=== PATIENT | male | born 1970 | race Caucasian/White ===

== ENCOUNTER 2020-08-27 07:22 | Emergency (ER) | payer SELFPAY ==
[2020-08-27] VITALS (12 sets, daily range): BP systolic 94–118; BP diastolic 46–69; PULSE 90–101; RESP 17–38; TEMP 36.3; O2SAT 86–97; BMI 32.5
--- NOTE | 2020-08-27 07:23 | CTR_ITS ---
PROCEDURE INFORMATION: Exam: CT Cervical Spine Without Contrast Exam date and time: 08/27/2020 7:40 AM Age: 50 years old Clinical indication: Injury or trauma; Fall; Blunt trauma; Injury date: 08/27/2020; Injury details: PT fell out of tree stand, limited HX due to PT condition. Best images due to PT condition TECHNIQUE: Imaging protocol: Computed tomography images of the cervical spine without contrast. Radiation optimization: All CT scans at this facility use at least one of these dose optimization techniques: automated exposure control; mA and/or kV adjustment per patient size (includes targeted exams where dose is matched to clinical indication); or iterative reconstruction. COMPARISON: No relevant prior studies available. RADIATION DOSE METRICS: Total DLP (mGy-cm): 474.14 FINDINGS: Bones/joints: Acute fractures of the visualized left 2nd and 3rd ribs. No acute bony injury or malalignment in the visualized cervical spine. Diminished cervical lordosis. Discs/Spinal canal/Neural foramina: Multilevel degenerative change. Soft tissues: Ligamentous calcification. Prominent subcutaneous emphysema. Lungs: High attenuation fluid and small pneumothorax in the incompletely visualized left apex, which will be evaluated in its entirety on separate chest CT report. CT/CT cervical spin wo con* [id number] IMPRESSION: 1. No acute bony injury or malalignment in the visualized cervical spine. 2. Acute fractures of the visualized left 2nd and 3rd ribs. 3. High attenuation fluid and small pneumothorax in the incompletely visualized left apex, which will be evaluated in its entirety on separate chest CT report. Radiation Dose CTDIVOL = (mGy): DLP = 474.14 (mGy-cm)
--- NOTE | 2020-08-27 07:23 | XRR_ITS ---
PROCEDURE INFORMATION: Exam: XR Chest, 1 View Exam date and time: 08/27/2020 7:24 AM Age: 50 years old Clinical indication: Injury or trauma; Fall; Blunt trauma (contusions or hematomas); Injury date: 08/27/2020; Injury details: PT fell out of tree stand, limited HX due to PT condition; Additional info: Cp TECHNIQUE: Imaging protocol: XR of the chest Views: 1 view. COMPARISON: No relevant prior studies available. FINDINGS: Lungs: There is patchy left lung consolidation. With history of trauma this may represent pulmonary contusion. In the right lung there appears to be a granuloma in the right upper lobe. Pleural space: No pleural effusion or pneumothorax is seen. Heart/Mediastinum: The heart is not enlarged. Bones/joints: There are mildly displaced fractures of multiple left ribs at least the 6 7th and 8th ribs.. Soft tissues: There is subcutaneous emphysema around the left upper chest. XR/XR chest 1V portable [id number] IMPRESSION: 1. Subcutaneous emphysema over the left upper chest. 2. Patchy left lung consolidation probably due to pulmonary contusions. 3. Multiple left rib fractures.
--- NOTE | 2020-08-27 07:23 | CTR_ITS ---
PROCEDURE INFORMATION: Exam: CT Head Without Contrast Exam date and time: 08/27/2020 7:40 AM Age: 50 years old Clinical indication: Injury or trauma; Fall; Blunt trauma (contusions or hematomas); Consciousness not specified; Injury date: 08/27/2020; Injury details: PT fell out of tree stand, limited HX due to PT condition. Best images due to PT condition TECHNIQUE: Imaging protocol: Computed tomography of the head without contrast. Radiation optimization: All CT scans at this facility use at least one of these dose optimization techniques: automated exposure control; mA and/or kV adjustment per patient size (includes targeted exams where dose is matched to clinical indication); or iterative reconstruction. COMPARISON: No relevant prior studies available. RADIATION DOSE METRICS: Total DLP (mGy-cm): 850.15 FINDINGS: Brain: Mild symmetric prominence of the cortical sulci relative to the stated patient age. No acute post-traumatic brain injury. Cerebral ventricles: Normal configuration of the ventricles. Bones/joints: No acute calvarial injury. Paranasal sinuses: Maxillary sinus mucoperiosteal disease. Mastoid air cells: No mastoid effusion. Soft tissues: No significant scalp hematoma. CT/CT head wo con* [id number] IMPRESSION: No acute post-traumatic brain injury. Radiation Dose CTDIVOL = (mGy): DLP = 850.15 (mGy-cm)
--- NOTE | 2020-08-27 07:23 | CTR_ITS ---
PROCEDURE INFORMATION: Exam: CT Chest With Contrast Exam date and time: 08/27/2020 7:39 AM Age: 50 years old Clinical indication: Injury or trauma; Fall; Generalized; Blunt trauma (contusions or hematomas); Injury date: 08/27/2020; Injury details: PT fell out of tree stand, limited HX due to PT condition. Best images due to PT condition TECHNIQUE: Imaging protocol: Computed tomography of the chest with intravenous contrast. Radiation optimization: All CT scans at this facility use at least one of these dose optimization techniques: automated exposure control; mA and/or kV adjustment per patient size (includes targeted exams where dose is matched to clinical indication); or iterative reconstruction. Contrast material: OMNIPAQUE 300; Contrast volume: 95 ml; Contrast route: INTRAVENOUS (IV); COMPARISON: No relevant prior studies available. RADIATION DOSE METRICS: Total DLP (mGy-cm): 3014.13 FINDINGS: Lungs: . There is moderate-sized left pleural effusion. A small left pneumothorax is present. There is patchy consolidation and atelectasis in the left lung consistent with pulmonary contusions. There is a benign calcified granuloma in the right lung Pleural space: . Moderate left pleural effusion with small left pneumothorax. Heart: Unremarkable. No cardiomegaly. No pericardial effusion. Aorta: Unremarkable. No aortic aneurysm. Lymph nodes: Unremarkable. No enlarged lymph nodes. Bones/joints: There are multiple left transverse process spine fractures at T5, T6, T7, T8, T9 and T10. There is about 5 mm of displacement. There are multiple left rib fractures involving the 2nd through the 12th ribs. There is about 1 cm of maximal displacement. Soft tissues: There is subcutaneous emphysema over the left side of the chest and into the left side of the neck. IMPRESSION: 1. Multiple displaced left rib and left transverse process fractures. 2. Moderate left pleural effusion. Small left pneumothorax. PROCEDURE INFORMATION: Exam: CT Abdomen And Pelvis With Contrast Exam date and time: 08/27/2020 7:39 AM Age: 50 years old Clinical indication: Injury or trauma; Fall; Generalized; Blunt trauma (contusions or hematomas); Injury date: 08/27/2020; Injury details: PT fell out of tree stand, limited HX due to PT condition. Best images due to PT condition TECHNIQUE: Imaging protocol: Computed tomography of the abdomen and pelvis with intravenous contrast. Radiation optimization: All CT scans at this facility use at least one of these dose optimization techniques: automated exposure control; mA and/or kV adjustment per patient size (includes targeted exams where dose is matched to clinical indication); or iterative reconstruction. Contrast material: OMNIPAQUE 300; Contrast volume: 95 ml; Contrast route: INTRAVENOUS (IV); COMPARISON: No relevant prior studies available. RADIATION DOSE METRICS: Total DLP (mGy-cm): 3014.13 FINDINGS: Liver: Normal. No mass. Gallbladder and bile ducts: Normal. No calcified stones. No ductal dilation. Pancreas: Normal. No ductal dilation. Spleen: There are multiple areas of diminished enhancement in the spleen measuring up to about 5 cm in diameter. There is a tiny amount of adjacent fluid. These findings are consistent with a grade 2 splenic injury. There is no evidence of vascular injury or extravasation. Adrenal glands: Normal. No mass. Kidneys and ureters: There are multiple areas of diminished enhancement in the left kidney there is hazy infiltration of the left renal hilum. Small cortical laceration is seen posteriorly. No contrast extravasation is seen. These findings are consistent with a parenchymal contusion and small laceration and consistent with a grade 2 left renal injury. Stomach and bowel: Unremarkable. No obstruction. No mucosal thickening. Appendix: No evidence of appendicitis. Intraperitoneal space: Of there is a small amount of free fluid in the pelvis. Vasculature: See Spleen finding. Lymph nodes: Unremarkable. No enlarged lymph nodes. Urinary bladder: Unremarkable as visualized. Reproductive: Unremarkable as visualized. Bones/joints: There are fractures of the left L2, L3 and L4 transverse processes with about 5 mm of displacement. There is a compression fracture of the superior endplate of L4 with mild loss of vertebral height. Soft tissues: There is subcutaneous contusion over the left flank. CT/CT chest abd pel w con* IMPRESSION: 1. Grade 2 spleen and grade 2 left renal injuries. 2. Fractures of the left L2, L3 and L4 transverse processes. 3. Compression fracture of L4 with mild loss of vertebral height. 4. Small amount of free fluid in the pelvis. THIS REPORT CONTAINS FINDINGS THAT MAY BE CRITICAL TO PATIENT CARE. The findings were verbally communicated via telephone conference with silviano Flower at 8:16 AM [employer] on 08/27/2020. The findings were acknowledged and understood. Radiation Dose CTDIVOL = (mGy): DLP = 3014.13~3014.13 (mGy-cm)
[2020-08-27] MEDS: ondansetron 2 mg/ML SDV 2 mL 4 MG IVP (07:28)
[2020-08-27] MEDS: HYDROmorphone 1 mg/mL INJ 1 mL IVP ×2 (07:28→08:18)
--- NOTE | 2020-08-27 07:32 | W.ED.FALL ---
HPI - Fall General: Chief Complaint: Fall Stated Complaint: FALL FROM TREE STAND Time Seen by Provider: 08/27/20 07:24 Source: patient Mode of arrival: ambulatory Limitations: no limitations History of Present Illness: HPI Narrative: 50-year-old male who was hunting this morning and fell out of his tree stand. He states his roughly 12 to 14 foot fall. He states he had left shoulder pain along with left rib pain. States he had neck pain as well. He states pain is sharp in nature and rates it a 8 out of 10. Denies any vomiting or diarrhea. Denies any worsening or improving factors. MD complaint: fall Associated symptoms-after fall: Reports abdominal pain and chest pain; Denies headache(s) or neck pain Review of Systems Const: Denies: fever(s), chills, body aches or change in appetite Eyes: Denies: blurry vision or eye discomfort ENMT: Denies: throat pain or dental pain Card: Reports: chest pain Resp: Reports: dyspnea GI: Reports: abdominal pain; Denies: nausea, vomiting or diarrhea : Denies: dysuria Musc: Denies: neck pain or back pain Skin/Breast: Denies: rash Neuro: Denies: headache(s) Psych: Denies: depression Chalino/Lymph: Denies: easy bruising All/Imm: Denies: urticaria Physical Exam Const: COMMON NORMALS: patient oriented x3 GENERAL APPEARANCE: in distress HENMT: COMMON NORMALS: normocephalic and atraumatic HEAD & SCALP: normocephalic and atraumatic Eye: COMMON NORMALS: Equal, round and reactive pupils present and EOMs intact bilaterally PUPIL: Yes Equal, round and reactive pupils present Neck/C-Spine: OTHER: Patient does have neck pain. Patient placed in a c-collar immediately. Chest: COMMONS NORMALS: normal inspection of the chest OTHER: Tenderness over left chest with some crepitus Resp: COMMON NORMALS: normal respiratory effort, No retractions, No use of accessory muscles and clear to auscultation bilaterally AUSCULTATION: clear to auscultation bilaterally Cardio: COMMON NORMALS: regular rate, regular rhythm and No murmurs present (Cardio) RATE: regular rate RHYTHM: regular rhythm GI: COMMON NORMALS: Normal to inspection, nondistended, normoactive bowel sounds present, Soft to palpation, non-tender and no masses PALPATION: Yes Soft to palpation Extremity: COMMON NORMALS: normal to inspection and full ROM Neuro: COMMON NORMALS: patient oriented x3, moves all extremities and no focal motor deficits Psych: COMMON NORMALS: mental status grossly normal, Normal thought process present and cooperative THOUGHT PROCESS: Normal thought process present Skin: COMMON NORMALS: no rashes or lesions noted and no wounds GENERAL SKIN EXAM: no rashes or lesions noted Procedures Chest Tube Chest Tube 1: Chest Tube Location: left Size of Tube (cm): 36 Chest Tube Prep: Yes betadine prep and sterile drapes applied Local Anesthetic: lidocaine 2% Incision Made With: #10 blade Post Procedure: sutured to skin and sterile dressing applied Tube Drainage: blood Post Procedure CXR?: Yes Patient Tolerated Procedure: Yes Procedural Sedation Indication: other (Chest tube placement) ASA Class: I Time of Last PO Intake: 05:39 IV Propofol dose (mg): 140 Patient Tolerated Procedure: well Course Vital Signs: Vital signs: Vital Signs Temperature 97.4 F L 08/27/20 08:00 Pulse Rate 90 08/27/20 08:22 Respiratory Rate 32 H 08/27/20 08:22 Blood Pressure 101/56 08/27/20 08:22 Pulse Oximetry 94 08/27/20 08:22 MDM - Fall MDM Narrative: Medical decision making narrative: Patient presents here with a fall from a tree stand. He has a multiple rib fractures and hemopneumothorax from the fall. Patient had chest tube placed here. Patient has been hemodynamically stable here. He has no signs of hemorrhagic shock. Spoke to ER physician at [facility] and will transfer there for trauma. Lab Data: Labs: Lab Results 08/27/20 08/27/20 08/27/20 Range/Units 07:25 07:25 07:25 WBC 20.7 H (4.0-10.0) 10^3/ uL RBC 4.45 (4.1-5.3) 10^6/u L Hgb 13.3 (11.7-16.6) g/dL Hct 41.5 L (42.0-52.0) % MCV 93.3 (80-94) fL MCH 29.9 (28.0-34.0) pg MCHC 32.0 (30.0-36.0) g/dL RDW 15.2 H (12.1-15.1) % Plt Count 362 (130-400) 10^3/c mm MPV 9.3 (7.4-10.4) fL Lymph % (Auto) Not Reportable Martin % (Auto) Not Reportable Lymph # (Auto) Not Reportable Martin # (Auto) Not Reportable PT 13.40 (12.1-14.9) SECO NDS INR 0.99 (0.8-1.2) Sodium 142 (136-145) mmol/L Potassium 3.1 L (3.5-5.1) mmol/L Chloride 106 (98-107) mmol/L Carbon Dioxide 22 (22-29) mmol/L Anion Gap 17.1 (5-19) BUN 16 (6-20) mg/dL Creatinine 1.0 (0.7-1.2) mg/dL GFR Calculation 79.4 L (90-130) mL/min Glucose 219 H (65-115) mg/dL Calculated Osmolal ity 302 H (285-295) mOsm/k g Calcium 8.8 (8.5-10.5) mg/dL Total Bilirubin 0.5 (0.15-1.2) mg/dL AST 119 H (0-40) U/L ALT 102 H (0-41) U/L Alkaline Phosphata se 172 H (40-130) IU/L Total Protein 6.7 (6.6-8.7) g/dL Albumin 4.1 (3.5-5.2) g/dL Globulin 2.6 (1.3-4.6) g/dL Imaging Data^: CT Head: Radiologist's impression: [place] [address] CT Scan Report Signed Patient: Kerwin Preciado Unit #: [id number] : 1970 Age/Sex: 50 / M ADM Date: 08/27/20 Loc: ER Room/Bed: Attending Dr: Ordering Provider/Ordering MD: Rickie Flower MD Date of Service: 08/27/20 Procedure(s): CT head wo con* [id number] Accession Number(s): [id number] Report Number: [id number] PROCEDURE INFORMATION: Exam: CT Head Without Contrast Exam date and time: 08/27/2020 7:40 AM Age: 50 years old Clinical indication: Injury or trauma; Fall; Blunt trauma (contusions or hematomas); Consciousness not specified; Injury date: 08/27/2020; Injury details: PT fell out of tree stand, limited HX due to PT condition. Best images due to PT condition TECHNIQUE: Imaging protocol: Computed tomography of the head without contrast. Radiation optimization: All CT scans at this facility use at least one of these dose optimization techniques: automated exposure control; mA and/or kV adjustment per patient size (includes targeted exams where dose is matched to clinical indication); or iterative reconstruction. COMPARISON: No relevant prior studies available. RADIATION DOSE METRICS: Total DLP (mGy-cm): 850.15 FINDINGS: Brain: Mild symmetric prominence of the cortical sulci relative to the stated patient age. No acute post-traumatic brain injury. Cerebral ventricles: Normal configuration of the ventricles. Bones/joints: No acute calvarial injury. Paranasal sinuses: Maxillary sinus mucoperiosteal disease. Mastoid air cells: No mastoid effusion. Soft tissues: No significant scalp hematoma. CT/CT head wo con* [id number] IMPRESSION: No acute post-traumatic brain injury. Other CT: Attestation: I personally reviewed and interpreted this imaging study as follows: Radiologist's impression: [place] [address] CT Scan Report Signed Patient: Kerwin Preciado Unit #: [id number] : 1970 Age/Sex: 50 / M ADM Date: 08/27/20 Loc: ER Room/Bed: Attending Dr: Ordering Provider/Ordering MD: Rickie Flower MD Date of Service: 08/27/20 Procedure(s): CT cervical spin wo con* [id number] Accession Number(s): [id number] Report Number: [id number] PROCEDURE INFORMATION: Exam: CT Cervical Spine Without Contrast Exam date and time: 08/27/2020 7:40 AM Age: 50 years old Clinical indication: Injury or trauma; Fall; Blunt trauma; Injury date: 08/27/2020; Injury details: PT fell out of tree stand, limited HX due to PT condition. Best images due to PT condition TECHNIQUE: Imaging protocol: Computed tomography images of the cervical spine without contrast. Radiation optimization: All CT scans at this facility use at least one of these dose optimization techniques: automated exposure control; mA and/or kV adjustment per patient size (includes targeted exams where dose is matched to clinical indication); or iterative reconstruction. COMPARISON: No relevant prior studies available. RADIATION DOSE METRICS: Total DLP (mGy-cm): 474.14 FINDINGS: Bones/joints: Acute fractures of the visualized left 2nd and 3rd ribs. No acute bony injury or malalignment in the visualized cervical spine. Diminished cervical lordosis. Discs/Spinal canal/Neural foramina: Multilevel degenerative change. Soft tissues: Ligamentous calcification. Prominent subcutaneous emphysema. Lungs: High attenuation fluid and small pneumothorax in the incompletely visualized left apex, which will be evaluated in its entirety on separate chest CT report. CT/CT cervical spin wo con* [id number] IMPRESSION: 1. No acute bony injury or malalignment in the visualized cervical spine. 2. Acute fractures of the visualized left 2nd and 3rd ribs. 3. High attenuation fluid and small pneumothorax in the incompletely visualized left apex, which will be evaluated in its entirety on separate chest CT report. CT Abd/Pel: Radiologist's impression: [place] [address] CT Scan Report Signed Patient: Kerwin Preciado Unit #: [id number] : 1970 Age/Sex: 50 / M ADM Date: 08/27/20 Loc: ER Room/Bed: Attending Dr: Ordering Provider/Ordering MD: Rickie Flower MD Date of Service: 08/27/20 Procedure(s): CT chest abd pel w con* Accession Number(s): [id number] Report Number: [id number] PROCEDURE INFORMATION: Exam: CT Chest With Contrast Exam date and time: 08/27/2020 7:39 AM Age: 50 years old Clinical indication: Injury or trauma; Fall; Generalized; Blunt trauma (contusions or hematomas); Injury date: 08/27/2020; Injury details: PT fell out of tree stand, limited HX due to PT condition. Best images due to PT condition TECHNIQUE: Imaging protocol: Computed tomography of the chest with intravenous contrast. Radiation optimization: All CT scans at this facility use at least one of these dose optimization techniques: automated exposure control; mA and/or kV adjustment per patient size (includes targeted exams where dose is matched to clinical indication); or iterative reconstruction. Contrast material: OMNIPAQUE 300; Contrast volume: 95 ml; Contrast route: INTRAVENOUS (IV); COMPARISON: No relevant prior studies available. RADIATION DOSE METRICS: Total DLP (mGy-cm): 3014.13 FINDINGS: Lungs: . There is moderate-sized left pleural effusion. A small left pneumothorax is present. There is patchy consolidation and atelectasis in the left lung consistent with pulmonary contusions. There is a benign calcified granuloma in the right lung Pleural space: . Moderate left pleural effusion with small left pneumothorax. Heart: Unremarkable. No cardiomegaly. No pericardial effusion. Aorta: Unremarkable. No aortic aneurysm. Lymph nodes: Unremarkable. No enlarged lymph nodes. Bones/joints: There are multiple left transverse process spine fractures at T5, T6, T7, T8, T9 and T10. There is about 5 mm of displacement. There are multiple left rib fractures involving the 2nd through the 12th ribs. There is about 1 cm of maximal displacement. Soft tissues: There is subcutaneous emphysema over the left side of the chest and into the left side of the neck. IMPRESSION: 1. Multiple displaced left rib and left transverse process fractures. 2. Moderate left pleural effusion. Small left pneumothorax. PROCEDURE INFORMATION: Exam: CT Abdomen And Pelvis With Contrast Exam date and time: 08/27/2020 7:39 AM Age: 50 years old Clinical indication: Injury or trauma; Fall; Generalized; Blunt trauma (contusions or hematomas); Injury date: 08/27/2020; Injury details: PT fell out of tree stand, limited HX due to PT condition. Best images due to PT condition TECHNIQUE: Imaging protocol: Computed tomography of the abdomen and pelvis with intravenous contrast. Radiation optimization: All CT scans at this facility use at least one of these dose optimization techniques: automated exposure control; mA and/or kV adjustment per patient size (includes targeted exams where dose is matched to clinical indication); or iterative reconstruction. Contrast material: OMNIPAQUE 300; Contrast volume: 95 ml; Contrast route: INTRAVENOUS (IV); COMPARISON: No relevant prior studies available. RADIATION DOSE METRICS: Total DLP (mGy-cm): 3014.13 FINDINGS: Liver: Normal. No mass. Gallbladder and bile ducts: Normal. No calcified stones. No ductal dilation. Pancreas: Normal. No ductal dilation. Spleen: There are multiple areas of diminished enhancement in the spleen measuring up to about 5 cm in diameter. There is a tiny amount of adjacent fluid. These findings are consistent with a grade 2 splenic injury. There is no evidence of vascular injury or extravasation. Adrenal glands: Normal. No mass. Kidneys and ureters: There are multiple areas of diminished enhancement in the left kidney there is hazy infiltration of the left renal hilum. Small cortical laceration is seen posteriorly. No contrast extravasation is seen. These findings are consistent with a parenchymal contusion and small laceration and consistent with a grade 2 left renal injury. Stomach and bowel: Unremarkable. No obstruction. No mucosal thickening. Appendix: No evidence of appendicitis. Intraperitoneal space: Of there is a small amount of free fluid in the pelvis. Vasculature: See Spleen finding. Lymph nodes: Unremarkable. No enlarged lymph nodes. Urinary bladder: Unremarkable as visualized. Reproductive: Unremarkable as visualized. Bones/joints: There are fractures of the left L2, L3 and L4 transverse processes with about 5 mm of displacement. There is a compression fracture of the superior endplate of L4 with mild loss of vertebral height. Soft tissues: There is subcutaneous contusion over the left flank. CT/CT chest abd pel w con* IMPRESSION: 1. Grade 2 spleen and grade 2 left renal injuries. 2. Fractures of the left L2, L3 and L4 transverse processes. 3. Compression fracture of L4 with mild loss of vertebral height. 4. Small amount of free fluid in the pelvis. Critical Care Time Critical Care Time: Critical Care Time: Yes Total Critical Care Time: 36 Attestation: This case had a high probability of a clinically significant, sudden, or life threatening deterioration of this patient's condition which required my full and direct attention, intervention and personal management. Discharge Plan Discharge Patient Disposition: Admitted As Inpatient Clinical Impression: Fall Pneumothorax Qualifiers: Pneumothorax type: unspecified pneumothorax Qualified Code(s): J93.9 - Pneumothorax, unspecified Fracture of rib Qualifiers: Encounter type: initial encounter Rib fracture type: multiple ribs Fracture type: closed Laterality: left Qualified Code(s): S22.42XA - Multiple fractures of ribs, left side, initial encounter for closed fracture Condition: Stable Coding Level of Care Code ED Power Distribution Engineer for Julio César Fwd Exam Comprehensive
[2020-08-27] MEDS: iohexol 300 mg/mL 100 mL Btl IV (07:37)
[2020-08-27 07:47] LABS: Hematocrit 41.5 % (42.0-52.0); Hemoglobin 13.3 g/dL (11.7-16.6); Mean Corpuscular Hemoglobin 29.9 pg (28.0-34.0); Mean Corpuscular Volume 93.3 fL (80-94); Mean Platelet Volume 9.3 fL (7.4-10.4); Platelet Count 362 10^3/cmm (130-400); Red Blood Count 4.45 10^6/uL (4.1-5.3); Red Cell Distribution Width 15.2 % (12.1-15.1); White Blood Count 20.7 10^3/uL (4.0-10.0)
[2020-08-27 07:56] LABS: INR 0.99 (0.8-1.2)
[2020-08-27] MEDS: propofol 10 mg/mL SDV 20 mL 60 MG IVP (08:00)
[2020-08-27] MEDS: sodium chloride 0.9% 1,000 ML 999 ML IV ×2 (08:00→09:05)
[2020-08-27] MEDS: propofol 10 mg/mL SDV 20 mL 40 MG IVP ×2 (08:02→08:08)
[2020-08-27 08:09] LABS: Albumin Level 4.1 g/dL (3.5-5.2); Alkaline Phosphatase 172 IU/L (40-130); Blood Urea Nitrogen 16 mg/dL (6-20); Calcium 8.8 mg/dL (8.5-10.5); Carbon Dioxide 22 mmol/L (22-29); Chloride 106 mmol/L (98-107); Creatinine Clr Calc Pharmacy 113.8825; Globulin 2.6 g/dL (1.3-4.6); Glomerular Filtration Rate 79.4 mL/min (90-130); Glucose 219 mg/dL (65-115); Osmolality Calculated 302 mOsm/kg (285-295); Sodium 142 mmol/L (136-145); Total Bilirubin 0.5 mg/dL (0.15-1.2); Total Protein 6.7 g/dL (6.6-8.7)
--- NOTE | 2020-08-27 08:10 | XRR_ITS ---
PROCEDURE INFORMATION: Exam: XR Chest, 1 View Exam date and time: 08/27/2020 8:22 AM Age: 50 years old Clinical indication: Device placement; Chest tube; Patient HX: PT fell from tree stand this am TECHNIQUE: Imaging protocol: XR of the chest Views: 1 view. COMPARISON: CT chest abd pel w con* 08/27/2020 7:43 AM FINDINGS: Tubes, catheters and devices: Left thoracostomy tube terminates overlying the midline in the midthoracic spine. Lungs: Interstitial prominence. Right upper lobe granuloma. Extensive left-sided airspace disease. Pleural space: Small left pleural fluid collection. Heart/Mediastinum: No cardiomegaly. Bones/joints: Acute left rib fractures. Soft tissues: Left-sided subcutaneous emphysema. XR/XR chest 1V portable [id number] IMPRESSION: 1. Extensive left-sided airspace disease. 2. Acute left rib fractures. 3.Additional findings as described above.
--- NOTE | 2020-08-27 08:16 | PC.NURSE ---
Pt was brought immediately back to ER 11 upon arrival, placed on the monitor and oxygen at 3LNC. Pt had a CXR performed at approx 0725, then taken straight to CT. Pt brought back from CT with chest tube set up and Dr Flower and JULES Roberts at bedside. Pt had EKG performed at 0755 while chest tube was being set up. See physician notes for chest tube insertion. 60mg Propofol given by Dr Flower at 0800, 40mg at 0802, 40mg again at 0805. 36Fr chest tube was placed at 0807, placed to suction at 0811. Post-procedure XR at 0815. Pt tolerated procedure fair.
[2020-08-27 08:33] LABS: Alanine Aminotransferase 102 U/L (0-41); Anion Gap 17.1 (5-19); Aspartate Amino Transferase 119 U/L (0-40); Potassium 3.1 mmol/L (3.5-5.1)
[2020-08-27 08:35] LABS: Slide Review Slide Review Perform
[2020-08-27 08:38] LABS: Absolute Segmented Neutrophil 12.4 10/cmm (1.6-7.1); Band Neutrophils Absolute 0.6 10^3/cmm (0.0-1.2); Eosinophils 0 %; Lymphocytes 33 %; Monocytes Absolute 0.4 10^3/cmm (0.1-0.6); Segmented Neutrophils 60 %; Total Cells Counted 100 (0-100)
[2020-08-27 08:39] LABS: Anisocytosis Trace; Platelet Estimate Normal (Normal); Poikilocytosis Trace
--- NOTE | 2020-08-27 10:24 | ECG_ITS ---
[facility] Test Date: 2020-08-27 Pat Name: Kerwin Preciado Department: Room: Gender: Male Nca Certified Concierge: : 1970 Requested By: Rickie Flower Order Number: [id number] Wendy MD: Shiv Panda M.D. Measurements Intervals [place] Rate: 97 P: 56 ME: 141 QRS: 74 QRSD: 99 T: 63 QT: 400 QTc: 510 Interpretive Statements SINUS RHYTHM POSSIBLE LEFT ATRIAL ENLARGEMENT [-0.1mV P WAVE IN V1/V2] MODERATE ST DEPRESSION [0.05+ mV ST DEPRESSION] No previous ECG available for comparison Electronically Signed On 08-27-2020 18:56:15 KEYSEATER OPERATOR by Shiv Panda M.D. [id number] f
== END 2020-08-27 10:00 | disposition admitted as inpatient to this hospital (09) ==
PROVIDERS: Emergency Provider Emergency Medicine
DX: J93.9 Pneumothorax, unspecified (principal); S22.42XA Multiple fractures of ribs, left side, initial encounter for closed fracture; W14.XXXA Fall from tree, initial encounter
CPT/HCPCS: 12345; 32551; 70450; 71045; 71260; 72125; 74177; 80053; 85007; 85025; 85610; 86850; 86900; 93005; 96361; 96374; 96375; 96376; 99283; 99291; J1170; J2405; J2704; J7030; Q9967

== ENCOUNTER → 2020-09-28 11:18 | Outpatient (BNVA) | payer SELFPAY | PROVIDERS: Visit Provider Nurse Practitioner | DX: M25.512 Pain in left shoulder (principal); Z87.81 Personal history of (healed) traumatic fracture; M54.16 Radiculopathy, lumbar region | CPT/HCPCS: 71046; 71100; 73030 ==

== ENCOUNTER → 2020-12-14 09:38 | Outpatient (BNVA) | payer SELFPAY | PROVIDERS: Visit Provider Nurse Practitioner | DX: M54.6 Pain in thoracic spine (principal); M25.531 Pain in right wrist; M54.16 Radiculopathy, lumbar region; M47.897 Other spondylosis, lumbosacral region; M47.896 Other spondylosis, lumbar region | CPT/HCPCS: 72072; 72100; 73110 ==

== ENCOUNTER → 2022-07-04 11:34 | Outpatient (BNVA) | payer SELFPAY | PROVIDERS: Visit Provider Nurse Practitioner | DX: M54.16 Radiculopathy, lumbar region (principal); M25.531 Pain in right wrist; G89.29 Other chronic pain; M47.897 Other spondylosis, lumbosacral region | CPT/HCPCS: 72072; 72100; 73110 ==

== ENCOUNTER 2023-07-13 16:48 | Emergency (ER) | payer SELFPAY ==
[2023-07-13 16:56] VITALS: BP 158/85; PULSE 105; RESP 17; O2SAT 96
[2023-07-13 17:01] VITALS: BP 147/109; PULSE 102; RESP 16; O2SAT 98
--- NOTE | 2023-07-13 17:10 | CTR_ITS ---
PROCEDURE INFORMATION: Exam: CT Chest Without Contrast; Diagnostic Exam date and time: 07/13/2023 5:14 PM Age: 52 years old Clinical indication: Injury or trauma; Fall; Blunt trauma (contusions or hematomas); Additional info: Fall 10 ft TECHNIQUE: Imaging protocol: Diagnostic computed tomography of the chest without contrast. Radiation optimization: All CT scans at this facility use at least one of these dose optimization techniques: automated exposure control; mA and/or kV adjustment per patient size (includes targeted exams where dose is matched to clinical indication); or iterative reconstruction. REPORTING DATA: Count of CT and Cardiac NM exams in prior 12 months: This patient has received 0 known CTs and 0 known cardiac nuclear medicine studies in the 12 months prior to the current study. COMPARISON: CT chest abd pel w con* 08/27/2020 7:43 AM RADIATION DOSE METRICS: Total DLP (mGy-cm): 634.74 FINDINGS: Lungs: Mild subsegmental atelectasis left lung base and left lingula otherwise lung evans are clear. 1.5 cm calcified granuloma right upper lobe, stable. Chronic granulomatous calcifications right hilum. No significant mediastinal lymphadenopathy. Pleural spaces: Unremarkable. No pneumothorax. No pleural effusion. Heart: Heart is not significantly enlarged. No significant coronary artery calcifications. No significant pericardial effusion. Mediastinal space: Anterior mediastinal fat planes are preserved. No evidence of mediastinal hematoma. Lymph nodes: See Lungs finding. Vasculature: Unremarkable. No aortic aneurysm. Bones/joints: Deformity of the left posterior ribcage secondary to multiple old healed fractures. Chronic deformity left 1st costal sternal junction likely posttraumatic in nature. Soft tissues: Unremarkable. CT/CT chest wo con [id number] IMPRESSION: 1. No acute findings within the chest. No evidence of intrathoracic injury. 2. Chronic deformity left chest wall secondary to old healed fractures. 3. Scattered subsegmental atelectasis left lingula and left lung base.
--- NOTE | 2023-07-13 17:11 | ED_ITS ---
HPI - Trauma General: Chief Complaint: Trauma Stated Complaint: abd pain Time Seen by Provider: 07/13/23 17:02 Source: patient and family Mode of arrival: ambulatory Limitations: no limitations History of Present Illness: This patient makes his way to the emergency department by private vehicle. He apparently was helping up friend work on his roof and was stepping from the ladder to the yassine of the roof approximately 10 feet or thereabouts the ladder gave way and he fell forward landing on his chest and his face. He did not suffer a loss of consciousness. He complains of pain in his left anterior chest says he has broken his ribs. He denies any other pain at this time. He has a past history of a fall out of a tree stand approximately 2530 feet resulting in rib fractures splenic laceration and other trauma that was taken care of at [facility]. He denies any extremity pain, neck pain, face pain etc. He does not take any anticoagulant or antiplatelet medications. MD complaint: fall Location: chest Associated symptoms: Reports chest pain; Denies abdominal pain, back pain, headache(s), nausea, syncope or vomiting Review of Systems Eyes: Denies: change in vision ENMT: Denies: throat pain or odynophagia Card: Reports: chest pain; Denies: lightheadedness, syncope or pre-syncope Resp: Denies: productive cough or non-productive cough GI: Denies: abdominal pain, nausea, vomiting or diarrhea Musc: Denies: neck pain, back pain, extremity pain or extremity swelling Neuro: Denies: headache(s), numbness in extremities or weakness in extremities [facility] ED PFSH: Medical History Tachycardia with heart rate 100-120 beats per minute Surgical History History of splenectomy 2020 History of surgery on right wrist plate and screws Family History Other Dementia Diabetes Heart disease Hypertension Stroke Denies family history of Cancer Social History Smoking and tobacco status: former smoker Second hand smoke exposure: No Smoking risk assessment/counseling performed?: No Alcohol intake: former Desire information about alcohol rehabilitation?: No Counseling given: No Substance/Drug Use: former Desire information about substance/drug rehabilitation?: No Counseling given: No Adopted: No Caregiver/support person: No Lives independently: Yes Household members: children Housing: Manufactured/Mobile home Marital status: Number of children: 2 Highest education level completed: High School Graduate service: No Current occupational status: employed 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 He is alert and cooperative no acute distress. Const: COMMON NORMALS: average body habitus and patient oriented x3 GENERAL APPEARANCE: cooperative ORIENTATION/CONSCIOUSNESS: Yes awake, Yes oriented to person and Yes oriented to place HENMT: COMMON NORMALS: normocephalic, atraumatic, Normal nasal mucous membranes and turbinates present, moist oral mucous membranes, oropharynx normal and dentition normal HEAD & SCALP: normocephalic and atraumatic FACE & SINUS: normal facial exam NOSE: Normal nasal mucous membranes and turbinates present OTHER: Examination of his face reveals no gross abnormalities. He has no midface tenderness or tenderness anywhere else in his mandible etc. Had normal occlusion of his mandible. Normal dentition without any evidence of injury. Eye: COMMON NORMALS: Equal, round and reactive pupils present, EOMs intact bilaterally and conjunctivae normal CONJUNCTIVA: Yes conjunctivae normal PUPIL: Yes Equal, round and reactive pupils present Neck/C-Spine: COMMON NORMALS: full ROM CERVICAL SPINE: Yes cervical ROM normal, No Cervical spine tenderness, No step off deformity, No Paracervical muscle tenderness, No Paracervical spasm and No Trapezius muscle tenderness Chest: Chest images (male): 1. Tenderness no ecchymosis, no subcutaneous emphysema. Resp: COMMON NORMALS: normal respiratory effort, No retractions, No use of accessory muscles and clear to auscultation bilaterally EFFORT & INSPECTION: Yes able to speak in complete sentences AUSCULTATION: clear to auscultation bilaterally Cardio: COMMON NORMALS: regular rate, regular rhythm, No murmurs present (Cardio) and Peripheral pulses 2+ throughout RATE: regular rate RHYTHM: regular rhythm PERIPHERAL PULSES: Peripheral pulses 2+ throughout GI: COMMON NORMALS: Normal to inspection, nondistended, normoactive bowel sounds present, Soft to palpation and non-tender PALPATION: Yes Soft to palpation : COMMON NORMALS: Yes no CVA tenderness BLADDER/KIDNEY EXAM: Yes no CVA tenderness Back/Pelvis: COMMON NORMALS: no CVA tenderness, thoracic and lumbar spine no rmal to inspection, no thoracic nor lumbar tenderness, thoraco-lumbar ROM normal and straight leg raise negative bilaterally PELVIS: Yes no pain with anterior-posterior compression and Yes no pain with lateral compression SACROILIAC JOINTS: Yes SI joints normal Extremity: COMMON NORMALS: normal to inspection, full ROM, no calf tenderness and no pedal edema GENERAL: Yes normal exam except as noted Neuro: COMMON NORMALS: patient oriented x3, moves all extremities and no focal motor deficits SENSORIUM/ORIENTATION: Yes oriented to person and Yes oriented to place CRANIAL NERVES: Yes CN normal except as noted Psych: COMMON NORMALS: mental status grossly normal Skin: COMMON NORMALS: no rashes or lesions noted, no wounds and turgor normal GENERAL SKIN EXAM: no rashes or lesions noted and turgor normal Course Reevaluation(s): Reevaluation #1: Patient reexamined. He remains clinically stable although a bit more sore when he breathes any was earlier. No new or other focal findings on reevaluation. Discussed CT scan findings. Also discussed expected course with both he and spouse. Time: 18:52 Vital Signs: Vital signs: Vital Signs Pulse Rate 91 07/13/23 19:01 Respiratory Rate 18 07/13/23 19:01 Blood Pressure 109/90 07/13/23 19:01 Pulse Oximetry 97 07/13/23 19:01 Oxygen Delivery Me thod Room Air 07/13/23 16:56 MDM - Trauma Medical Decision Making This patient presented via private vehicle accompanied by spouse to the emergency department after having approximately 10 foot fall off a ladder while attempting to mount a roof. He predominantly landed on his chest with any other injury, loss of conscious etc. Initial clinical examination revealed him to be in no acute distress. Cervical spine was cleared clinically there is no evidence of obvious respiratory distress. The extremities were without deformity axial spine was without tenderness. His remainder of his clinical exam was reassuring. Imaging was obtained which revealed no evidence of pneumothorax, bony injury, or other intrathoracic injury.phototypesetting equipment monitor revealed no arrhythmias. EKG was nonconcerning. Patient remained stable. No evidence of hypoxia or other concerning vital signs out of his norm. Patient appears to have only suffered a chest wall contusion as result of this fall without any evidence of other injury. Discussed expected course and return precautions in detail with both he and spouse. They both voiced understanding and acknowledged and appreciated their care. Lab Data I reviewed the patient's lab results. Radiology Impressions Chest CT 07/13/23 17:10 IMPRESSION: 1. No acute findings within the chest. No evidence of intrathoracic injury. 2. Chronic deformity left chest wall secondary to old healed fractures. 3. Scattered subsegmental atelectasis left lingula and left lung base. All radiology interpretation(s) finalized by discharge EKG Data EKG 1: I personally reviewed and interpreted this EKG as follows: Interpretation: Resting EKG reveals a ventricular rate of 91 bpm. Normal MS interval, normal QRS duration, normal corrected QT interval. Normal axis. No current of injury or arrhythmias noted at this time. Discharge Plan Discharge Patient Disposition: Home Clinical Impression: Chest wall contusion, Fall from height of greater than 3 feet Condition: Stable Prescriptions: New hydrocodone-acetaminophen 7.5-325 mg tablet 1 tab PO BID PRN (Reason: pain) Qty: 10 0RF No Action ascorbic acid (vitamin C) 1,000 mg tablet 500 mg PO BID cholecalciferol (vitamin D3) 25 mcg (1,000 unit) capsule 25 mcg PO DAILY Galzin 50 mg (zinc) capsule 50 mg PO DAILY Rx Instructions: swallow whole; do not chew/break/dissolve/open magnesium oxide 400 mg magnesium tablet 400 mg PO BID Qty: 60 0RF Rx Instructions: OTC valsartan [Diovan] 80 mg tablet 80 mg PO DAILY Qty: 90 1RF duloxetine [Cymbalta] 30 mg capsule,delayed release(DR/EC) 30 mg PO BID Qty: 60 2RF Discharge Orders: Discharge ED (Routine); Ordered 07/13/23 Ordered By: Raji Benson Referrals: Maki Patricio, CAUSTIC ROOM ATTENDANT-C [Primary Care Provider] - Discharge Diet: Usual diet Discharge Activity: Increase activity as tolerated Patient Instructions: Opioid Safety, Pain Management Activity Restrictions/Additional Instructions: As we discussed your evaluation in the emergency department today did not find any evidence of serious injury. Nonetheless a chest wall injury can be very painful and then can last for a number of weeks. If you develop increasing pain, difficulty breathing, fever, other concerns return to this or the nearest emergency department for reevaluation. Coding Level of Care Code ED Direct Selling Counselor for Julio César Rodriguez
[2023-07-13 18:01] VITALS: BP 148/82; PULSE 93; RESP 18; O2SAT 93
[2023-07-13] MEDS: HYDROcodone-acetaminophen 7.5-325 mg Tablet 1 TAB PO (19:00)
[2023-07-13 19:01] VITALS: BP 109/90; PULSE 91; RESP 18; O2SAT 97
--- NOTE | 2023-07-13 19:05 | ECG_ITS ---
[facility] Test Date: 2023-07-13 Pat Name: Kerwin Preciado Department: Room: Gender: Male Correctional Officer Captain: : 1970 Requested By: Raji Benson Order Number: [id number] Wendy MD: Toni Rob M.D. Measurements Intervals [place] Rate: 91 P: 48 GA: 154 QRS: 48 QRSD: 84 T: 55 QT: 375 QTc: 461 Interpretive Statements SINUS RHYTHM POSSIBLE LEFT ATRIAL ENLARGEMENT [-0.1mV P-WAVE IN V1/V2] NONSPECIFIC T-WAVE ABNORMALITY Compared to ECG 08/27/2020 07:53:40 T-wave abnormality now present ST (T wave) deviation no longer present Electronically Signed On 07-14-2023 11:12:21 CDT by Toni Rob M.D. [id number]
[2023-07-13 19:32] VITALS: BP 150/90; PULSE 86; RESP 18; O2SAT 98
== END 2023-07-13 19:34 | disposition home or self-care (01) ==
PROVIDERS: Emergency Provider Emergency Medicine; PCP Nurse Practitioner
DX: S20.212A Contusion of left front wall of thorax, initial encounter (principal); Z87.891 Personal history of nicotine dependence; W13.2XXA Fall from, out of or through roof, initial encounter
CPT/HCPCS: 71250; 93005; 99284

== ENCOUNTER 2024-08-04 14:35 | Emergency (ER) | payer SELFPAY ==
[2024-08-04 14:43] VITALS: BP 148/68; PULSE 110; RESP 18; TEMP 36.7; O2SAT 97; BMI 29.0
--- NOTE | 2024-08-04 15:05 | ED_ITS ---
HPI - Back Pain/Injury General: Chief Complaint: Back Pain/Injury Stated Complaint: back pain Time Seen by Provider: 08/04/24 15:05 Source: patient Mode of arrival: ambulatory Limitations: no limitations History of Present Illness: Patient is a very nice 53-year-old male presents to ED today with complaint of back pain. Patient states he has a longstanding history of diffuse back pain stemming from several injuries including a 15 foot fall from a tree stand. He states he has histories of several vertebral injuries as well as rib injuries. He states he always has some degree of back discomfort but over the past 3 weeks his mid back has been bothering him more than normal he is not complaining of any radicular symptoms. Denies chest pain or abdominal pain. No flank pain or urinary symptoms. MD elicited complaint: back pain Pertinent past history: prior back pain Onset (ago): week(s) Timing: constant Severity: moderate Location: thoracic spine Radiation: none Exacerbating factors: movement Relieving factors: immobilization Associated symptoms: Reports no associated symptoms; Deny abdominal pain, difficulty walking, dysuria, fever(s), hematuria or syncope Work related injury: No Related Data Home Medications Medication Instructions Recorded Confirmed ascorbic acid (vitamin C) 1,000 mg 500 mg PO BID 09/27/20 08/19/23 tablet cholecalciferol (vitamin D3) 25 25 mcg PO DAILY 09/27/20 08/19/23 mcg (1,000 unit) capsule zinc acetate 50 mg (zinc) capsule 50 mg PO DAILY 09/28/20 08/19/23 (Galzin) Previous Rx's Medication Instructions Recorded magnesium oxide 400 mg PO BID #60 tabs 07/04/22 duloxetine 30 mg capsule,delayed 30 mg PO DAILY #90 caps 08/19/23 release (Cymbalta) methocarbamol 500 mg tablet 1,000 mg (2 x 500 mg) PO Q8H #30 08/04/24 tabs prednisone 10 mg tablet 10 mg PO DAILY 7 days #27 tabs 08/04/24 tramadol 50 mg tablet 50 mg PO Q6H PRN pain #14 tabs 08/04/24 Allergies Allergy/AdvReac Type Severity Reaction Status Date / Time No Known Allergies Allergy Verified 08/19/23 13:06 Review of Systems Const: Denies: fever(s) Card: Denies: chest pain, lightheadedness, syncope, pre-syncope or dyspnea on exertion Resp: Denies: dyspnea GI: Denies: abdominal pain : Denies: flank pain, dysuria or hematuria Musc: Reports: back pain; Denies: neck pain, extremity pain, extremity swelling, joint pain or joint swelling Neuro: Denies: headache(s), numbness in extremities, weakness in extremities, sensory changes or difficulty walking PFSH ED PFSH: Medical History Tachycardia with heart rate 100-120 beats per minute Surgical History History of splenectomy 2020 History of surgery on right wrist plate and screws Family History Other Dementia Diabetes Heart disease Hypertension Stroke Denies family history of Cancer Social History Smoking and tobacco/nicotine status: former use of tobacco/nicotine Second hand smoke exposure: No Alcohol intake: former Substance/Drug Use: former Adopted: No Caregiver/support person: No Lives independently: Yes Household members: children Housing: Manufactured/Mobile home Marital status: Number of children: 2 Highest education level completed: High School Graduate service: No Current occupational status: employed 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 Pets and animals: No Sexually active: Yes Do you think of yourself as: Straight/Heterosexual Current gender identity: Male Physical Exam Const: COMMON NORMALS: average body habitus, patient oriented x3, no limitations, healthy appearing, alert and well nourished GENERAL APPEARANCE: cooperative and in distress (appears uncomfortable secondary to pain) ORIENTATION/CONSCIOUSNESS: Yes awake, Yes oriented to person, Yes oriented to place and Yes oriented to time Neck/C-Spine: COMMON NORMALS: full ROM CERVICAL SPINE: No Cervical spine tenderness Chest: COMMONS NORMALS: normal inspection of the chest and normal palpation of entire chest wall Resp: COMMON NORMALS: normal respiratory effort and clear to auscultation bilaterally AUSCULTATION: clear to auscultation bilaterally Cardio: COMMON NORMALS: regular rate and regular rhythm RATE: regular rate RHYTHM: regular rhythm GI: COMMON NORMALS: Normal to inspection, nondistended, normoactive bowel s ounds present, Soft to palpation, non-tender and no masses PALPATION: Yes Soft to palpation : COMMON NORMALS: Yes no CVA tenderness BLADDER/KIDNEY EXAM: Yes no CVA tenderness Back/Pelvis: COMMON NORMALS: no CVA tenderness and thoracic and lumbar spine normal to inspection THORACIC SPINE/UPPER BACK: Yes pain with ROM, Yes thoracic spinal tenderness, Yes paraspinal muscle tenderness and No paraspinal muscle spasm LUMBAR SPINE/LOWER BACK: Yes normal to inspection PELVIS: Yes buttocks normal and No sciatic notch tenderness SACROILIAC JOINTS: Yes SI joints normal SACRUM: no tenderness COCCYX: no tenderness OTHER: Patient is back pain is directly reproducible with palpation of his mid thoracic spine Extremity: COMMON NORMALS: normal to inspection and full ROM GENERAL: Yes normal exam except as noted Neuro: COMMON NORMALS: patient oriented x3, moves all extremities, no focal motor deficits, no sensory deficits noted and gait normal SENSORIUM/ORIENTATION: Yes alert, Yes oriented to person, Yes oriented to place and Yes oriented to time Skin: COMMON NORMALS: no rashes or lesions noted GENERAL SKIN EXAM: no rashes or lesions noted Course Vital Signs: Vital signs: Vital Signs Temperature 98.1 F 08/04/24 14:43 Pulse Rate 107 H 08/04/24 16:43 Respiratory Rate 16 08/04/24 16:43 Blood Pressure 126/75 08/04/24 16:43 Pulse Oximetry 94 08/04/24 16:43 Oxygen Delivery Me thod Room Air 08/04/24 14:43 MDM - Back Pain/Injury Medical Decision Making XRs unremarkable. Patient does feel better after IM medications given here. Recommend he follow-up with his primary care provider for further evaluation. Treating with pain medication, prednisone, and a muscle relaxer. He can continue taking his ibuprofen as he had been doing. Medical Records I reviewed the patient's medical records. Labs Radiology Impressions Thoracic Spine X-Ray 08/04/24 15:51 IMPRESSION: No acute findings. XR interpretation done by ED provider, pending radiology final review Discharge Plan Discharge Patient Disposition: Home Clinical Impression: Thoracic back pain Qualifiers: Chronicity: acute Back pain laterality: midline Qualified Code(s): M54.6 - Pain in thoracic spine Condition: Stable Prescriptions: New methocarbamol 500 mg tablet 1,000 mg PO Q8H Qty: 30 0RF prednisone 10 mg tablet 10 mg PO DAILY 7 Days Qty: 27 0RF Rx Instructions: 6 tabs on days 1-2, 5 tabs on days 3, 4 tabs on day 4, 3 tabs on day 5, 2 tabs on day 6, 1 tab on day 7 tramadol 50 mg tablet 50 mg PO Q6H PRN (Reason: pain) Qty: 14 0RF No Action ascorbic acid (vitamin C) 1,000 mg tablet 500 mg PO BID cholecalciferol (vitamin D3) 25 mcg (1,000 unit) capsule 25 mcg PO DAILY Galzin 50 mg (zinc) capsule 50 mg PO DAILY Rx Instructions: swallow whole; do not chew/break/dissolve/open magnesium oxide 400 mg magnesium tablet 400 mg PO BID Qty: 60 0RF Rx Instructions: OTC duloxetine [Cymbalta] 30 mg capsule,delayed release(DR/EC) 30 mg PO DAILY Qty: 90 1RF Discharge Orders: Discharge ED (Routine); Ordered 08/04/24 Ordered By: Bethany Lorenzo Referrals: Jaylon Dumont MD [Primary Care Provider] - Patient Instructions: Opioid Safety, Pain Management Activity Restrictions/Additional Instructions: As we discussed, I would like you to follow-up with your primary care provider for further evaluation of your back pain. Coding Level of Care Code ED Client Account Manager for Julio César Rodriguez
--- NOTE | 2024-08-04 15:51 | XRR_ITS ---
PROCEDURE INFORMATION: Exam: XR Thoracic Spine Exam date and time: 08/04/2024 3:58 PM Age: 53 years old Clinical indication: Pain in thoracic spine TECHNIQUE: Imaging protocol: Radiologic exam of the thoracic spine. Views: 3 views. COMPARISON: CR XR thoracic spine 3V* [id number] 07/04/2022 11:36 AM FINDINGS: Bones/joints: No fracture or other acute abnormality. There is a mild upper thoracic dextrocurvature. Sagittal alignment is normal. No significant arthritic findings. Soft tissues: Unremarkable. XR/XR thoracic spine 3V* [id number] IMPRESSION: No acute findings.
[2024-08-04] MEDS: orphenadrine 30 mg/mL Inj 2 mL 60 MG IM (16:08)
[2024-08-04 16:09] VITALS: RESP 16
[2024-08-04] MEDS: dexamethasone 10 mg/mL INJ IM (16:09)
[2024-08-04] MEDS: morphine 4 mg/mL SDV 1 mL IM (16:09)
[2024-08-04 16:43] VITALS: BP 126/75; PULSE 107; RESP 16; O2SAT 94
== END 2024-08-04 16:54 | disposition home or self-care (01) ==
PROVIDERS: Emergency Provider Physician Assistant; PCP Family Medicine
DX: M54.6 Pain in thoracic spine (principal); Z87.891 Personal history of nicotine dependence
CPT/HCPCS: 72072; 96372; 99284; J1100; J2270; J2360

== ENCOUNTER 2024-08-16 07:39 | Emergency (ER) | payer SELFPAY ==
[2024-08-16 07:45] VITALS: BP 138/77; PULSE 99; RESP 16; TEMP 36.6; O2SAT 98; BMI 29.8
--- NOTE | 2024-08-16 08:01 | W.ED.BACK ---
HPI - Back Pain/Injury General: Chief Complaint: Back Pain/Injury Stated Complaint: back pain Time Seen by Provider: 08/16/24 07:41 Source: patient Mode of arrival: ambulatory Limitations: no limitations History of Present Illness: 54-year-old male who has a history of chronic back pain after falling out of a tree stand years ago he states he has had worsening pain over the last month states the pain in his low back he has some radiation down his right leg he states he has been on steroids and Robaxin has had minimal relief he does not see pain management or his brake specialist he follows up with a PCP. He denies any bowel or bladder incontinence patient is able to ambulate. Pain is worse with movement improved with rest Associated symptoms: Deny abdominal pain, chills, fever(s), nausea or vomiting Related Data Home Medications Medication Instructions Recorded Confirmed ascorbic acid (vitamin C) 1,000 mg 500 mg PO BID 09/27/20 08/19/23 tablet cholecalciferol (vitamin D3) 25 25 mcg PO DAILY 09/27/20 08/19/23 mcg (1,000 unit) capsule zinc acetate 50 mg (zinc) capsule 50 mg PO DAILY 09/28/20 08/19/23 (Galzin) Previous Rx's Medication Instructions Recorded magnesium oxide 400 mg PO BID #60 tabs 07/04/22 duloxetine 30 mg capsule,delayed 30 mg PO DAILY #90 caps 08/19/23 release (Cymbalta) methocarbamol 500 mg tablet 1,000 mg (2 x 500 mg) PO Q8H #30 08/04/24 tabs tramadol 50 mg tablet 50 mg PO Q6H PRN pain #14 tabs 08/04/24 naproxen 500 mg tablet (Naprosyn) 500 mg PO BID PRN pain #20 tabs 08/16/24 Allergies Allergy/AdvReac Type Severity Reaction Status Date / Time No Known Allergies Allergy Verified 08/19/23 13:06 Review of Systems Const: Denies: fever(s), chills, body aches or change in appetite ENMT: Denies: throat pain or dental pain Card: Denies: chest pain Resp: Denies: dyspnea GI: Denies: abdominal pain, nausea, vomiting or diarrhea Musc: Reports: back pain; Denies: neck pain Skin/Breast: Denies: rash Neuro: Denies: headache(s) [facility] ED PFSH: Medical History Tachycardia with heart rate 100-120 beats per minute Surgical History History of splenectomy 2020 History of surgery on right wrist plate and screws Family History Other Dementia Diabetes Heart disease Hypertension Stroke Denies family history of Cancer Social History Smoking and tobacco/nicotine status: former use of tobacco/nicotine Second hand smoke exposure: No Alcohol intake: former Substance/Drug Use: former Adopted: No Caregiver/support person: No Lives independently: Yes Household members: children Housing: Manufactured/Mobile home Marital status: Number of children: 2 Highest education level completed: High School Graduate service: No Current occupational status: employed 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 Pets and animals: No Sexually active: Yes Do you think of yourself as: Straight/Heterosexual Current gender identity: Male Physical Exam Const: COMMON NORMALS: no acute distress, patient oriented x3 and healthy appearing HENMT: COMMON NORMALS: normocephalic and atraumatic HEAD & SCALP: normocephalic and atraumatic Eye: COMMON NORMALS: conjunctivae normal CONJUNCTIVA: Yes conjunctivae normal Neck/C-Spine: COMMON NORMALS: full ROM and supple Chest: COMMONS NORMALS: normal inspection of the chest Resp: COMMON NORMALS: normal respiratory effort Cardio: COMMON NORMALS: regular rate, regular rhythm and No murmurs present (Cardio) RATE: regular rate RHYTHM: regular rhythm Back/Pelvis: OTHER: Paraspinal tenderness no midline tenderness Extremity: COMMON NORMALS: normal to inspection and full ROM Neuro: COMMON NORMALS: patient oriented x3, moves all extremities and no focal motor deficits Psych: COMMON NORMALS: mental status grossly normal, Normal thought process present and cooperative THOUGHT PROCESS: Normal thought process present Skin: COMMON NORMALS: no rashes or lesions noted and no wounds GENERAL SKIN EXAM: no rashes or lesions noted Course Vital Signs: Vital signs: Vital Signs Temperature 97.8 F 08/16/24 07:45 Pulse Rate 99 08/16/24 07:45 Respiratory Rate 16 08/16/24 07:45 Blood Pressure 138/77 08/16/24 07:45 Pulse Oximetry 98 08/16/24 07:45 Oxygen Delivery Me thod Room Air 08/16/24 07:45 MDM - Back Pain/Injury Medical Decision Making Patient presents here with back pain we will give him pain medication here Decadron and the Valium he has to follow-up with Dr. Gee he has no signs of cord compression or epidural abscess he is return to ER if worsening Medical Records I reviewed the patient's medical records. No radiology studies performed this visit Discharge Plan Discharge Patient Disposition: Home Clinical Impression: Back pain Qualifiers: Back pain location: low back pain Chronicity: chronic Condition: Stable Prescriptions: New naproxen [Naprosyn] 500 mg tablet 500 mg PO BID PRN (Reason: pain) Qty: 20 0RF No Action ascorbic acid (vitamin C) 1,000 mg tablet 500 mg PO BID cholecalciferol (vitamin D3) 25 mcg (1,000 unit) capsule 25 mcg PO DAILY Galzin 50 mg (zinc) capsule 50 mg PO DAILY Rx Instructions: swallow whole; do not chew/break/dissolve/open magnesium oxide 400 mg magnesium tablet 400 mg PO BID Qty: 60 0RF Rx Instructions: OTC duloxetine [Cymbalta] 30 mg capsule,delayed release(DR/EC) 30 mg PO DAILY Qty: 90 1RF methocarbamol 500 mg tablet 1,000 mg PO Q8H Qty: 30 0RF tramadol 50 mg tablet 50 mg PO Q6H PRN (Reason: pain) Qty: 14 0RF Discharge Orders: Discharge ED (Routine); Ordered 08/16/24 Ordered By: Rickie Flower Referrals: Jaylon Dumont MD [Primary Care Provider] - Discharge Diet: Advance as tolerated Discharge Activity: Resume usual activity Patient Instructions: Back Pain (ED) Coding Level of Care Code ED [facility] for Julio César Rodriguez
[2024-08-16] MEDS: dexamethasone 10 mg/mL INJ IM (08:06)
[2024-08-16] MEDS: morphine 4 mg/mL SDV 1 mL IM (08:06)
[2024-08-16] MEDS: diazePAM 5 mg Tablet PO (08:06)
[2024-08-16] MEDS: ketorolac 30 mg/mL INJ IM (08:06)
[2024-08-16 08:26] VITALS: BP 135/87; PULSE 71; O2SAT 99
--- NOTE | 2024-08-17 08:50 | DCPLANNER ---
messaged ortho for er f/u
== END 2024-08-16 08:27 | disposition home or self-care (01) ==
PROVIDERS: Emergency Provider Emergency Medicine; PCP Family Medicine
DX: M54.59 Other low back pain (principal); Z87.891 Personal history of nicotine dependence
CPT/HCPCS: 96372; 99284; J1100; J1885; J2270

== ENCOUNTER 2024-08-23 18:43 | Emergency (ER) | payer SELFPAY ==
[2024-08-23] VITALS (50 sets, daily range): BP systolic 113–168; BP diastolic 86–116; PULSE 104–126; RESP 12–38; TEMP 36.5; O2SAT 86–100; BMI 29.8
--- NOTE | 2024-08-23 19:28 | CTR_ITS ---
PROCEDURE INFORMATION: Exam: CT Abdomen And Pelvis Without Contrast Exam date and time: 08/23/2024 7:38 PM Age: 54 years old Clinical indication: Constipation and nausea and vomiting; Abdominal pain; Generalized; Prior surgery; Surgery date: 6+ months; Surgery type: Splenectomy; Patient HX: Intractable abd and low back pain with n/v and constipation. History of back injury from fall out of tree stand four years ago. TECHNIQUE: Imaging protocol: Computed tomography of the abdomen and pelvis without contrast. Radiation optimization: All CT scans at this facility use at least one of these dose optimization techniques: automated exposure control; mA and/or kV adjustment per patient size (includes targeted exams where dose is matched to clinical indication); or iterative reconstruction. COMPARISON: CT chest abd pel w con* 08/27/2020 7:43 AM RADIATION DOSE METRICS: Total DLP (mGy-cm): 789.2 FINDINGS: Lungs: Consolidation at the left lung base is partially visualized. Liver: Normal. No mass. Gallbladder and biliary ducts: Normal. No calcified stones. No ductal dilation. Pancreas: Normal. No ductal dilation. Spleen: Status post splenectomy. Adrenal glands: Normal. No mass. Kidneys and ureters: Mild left perinephric stranding may be chronic in nature. Stomach and bowel: Colonic constipation is present. There is somewhat heterogeneous soft tissue density with surrounding stranding in the left abdomen adjacent to the descending colon measuring 7.2 x 6.8 centimetres in AP/transverse dimensions. Appendix: No evidence of appendicitis. Intraperitoneal space: Unremarkable. No free air. No significant fluid collection. Vasculature: Unremarkable. No abdominal aortic aneurysm. Lymph nodes: Unremarkable. No enlarged lymph nodes. Urinary bladder: Unremarkable as visualized. Reproductive: Unremarkable as visualized. Bones/joints: Multiple old/healed left rib fractures. There are old fractures through the T5 through T10 left transverse processes. Soft tissues: Unremarkable. CT/CT abdomen pelvis wo con [id number] IMPRESSION: 1. Heterogeneous soft tissue with surrounding stranding is present in the left abdomen adjacent to the descending colon measuring 7.[address] scan abdomen/pelvis with IV contrast recommended for further evaluation. 2. There is mild left perinephric stranding. This may be chronic in nature however could be more optimally evaluated by CT scan abdomen/pelvis with IV contrast and delayed images, renal protocol, as clinically warranted. 3. Partially visualized consolidation at the left lung base. This may represent scar tissue, pneumonia, and/or atelectasis.
[2024-08-23 19:35] LABS: Basophils # 0.1 10^3/uL (0.0-0.1); Basophils % 0.2 %; Hematocrit 44.2 % (37-53); Lymphocytes # 2.9 10^3/uL (0.8-4.8); Lymphocytes % 11.3 %; Mean Corpuscular HGB Conc 32.1 g/dL (30-55); Mean Corpuscular Volume 90.4 fl (82-101); Mean Platelet Volume 9.1 fL (7.4-10.4); Monocytes # 1.6 10^3/uL (0.2-0.9); Monocytes % 6.2 %; Neutrophils # 20.73 10^3/uL (1.8-7.7); Neutrophils % 81.8 %; Nucleated Red Blood Cells % 0 %; Platelet Count 786 10^3/cmm (157-399); Red Blood Count 4.89 10^6/uL (3.85-5.65); Red Cell Distribution Width 13.2 % (12.1-15.1); White Blood Count 25.38 10^3/uL (3.29-11.43)
[2024-08-23 19:56] LABS: Alanine Aminotransferase 29 U/L (0-41); Albumin Level 4.7 g/dL (3.5-5.2); Alkaline Phosphatase 195 U/L (40-130); Anion Gap 24.2 (5-19); Aspartate Amino Transferase 19 U/L (0-40); Blood Urea Nitrogen 15 mg/dL (6-20); Calcium 10.5 mg/dL (8.5-10.5); Carbon Dioxide 21 mmol/L (22-29); Chloride 91 mmol/L (98-107); Globulin 3.8 g/dL (1.3-4.6); Glomerular Filtration Rate 88.3 mL/min (90-130); Glucose 128 mg/dL (65-115); Lipase 12 U/L (13-60); Osmolality Calculated 276 mOsm/kg (285-295); Potassium 4.2 mmol/L (3.5-5.1); Sodium 132 mmol/L (136-145); Total Bilirubin 0.5 mg/dL (0.15-1.2); Total Protein 8.5 g/dL (6.6-8.7)
[2024-08-23 19:57] LABS: Lactic Sepsis W/Reflex 3.9 mmol/L (0.5-2.2)
[2024-08-23] MEDS: ondansetron 2 mg/ML SDV 2 mL 4 MG IVP (20:07)
[2024-08-23] MEDS: HYDROmorphone 1 mg/mL INJ 1 mL 0.5 MG IVP (20:08)
[2024-08-23] MEDS: sodium chloride 0.9% 1,000 ML 999 ML IV ×3 (20:13→21:17)
[2024-08-23] MEDS: piperacillin-tazobactam 4.5 GM in sodium chloride 0.9% (plus) 50 ML IV (20:52)
[2024-08-23 20:58] LABS: Bilirubin Urine Negative (Negative); Blood Urine Negative (Negative); Glucose Urine UA Negative (Normal); Ketones Urine Negative (Negative); Leukocyte Esterase Urine Negative (Negative); Nitrate Urine Negative (Negative); Protein Urine Negative (Negative); Specific Gravity, Urine 1.016 (1.005-1.030); Urine Appearance Clear (CLEAR); Urine Color Yellow (Yellow); pH Urine 6.5 (5-7)
[2024-08-23 21:03] LABS: Add Urine Microscopic? YES; Bacteria Urine None Seen /hpf; Hyaline Casts Urine 0-4 /lpf; Squamous Epithelial Cell Urine 0-5 /hpf (0-5); WBC Urine 0-5 /hpf (0-5)
[2024-08-23] MEDS: vancomycin 1,500 MG/300 ML PIGGYBACK 200 MG (21:03)
--- NOTE | 2024-08-23 21:06 | PC.NURSE ---
PER Dr Sellers verbal order pt was given 1.5g Vancomycin in 300ml vs the 1.5g in 250mL.
--- NOTE | 2024-08-23 21:11 | XRR_ITS ---
PROCEDURE INFORMATION: Exam: XR Chest Exam date and time: 08/23/2024 9:19 PM Age: 54 years old Clinical indication: Abnormal findings; Abnormal radiologic exam of lung or chest; Patient HX: Abnormal CT; Additional info: Consolidation on CT partially visualized; Abnormal CT. TECHNIQUE: Imaging protocol: Radiologic exam of the chest. Views: 1 view. COMPARISON: CT chest wo con [id number] 07/13/2023 5:14 PM FINDINGS: Lungs: Masslike consolidation in the lingula. Pleural spaces: No evidence of pneumothorax. No evidence of pleural effusion. Heart/Mediastinum: Cardiomediastinal silhouette is within normal limits. Bones/joints: No evidence of acute osseous abnormality. XR/XR chest 1V portable [id number] IMPRESSION: 1. Masslike consolidation of the lingula. Dedicated CT of the chest with contrast is recommended when clinically feasible.
--- NOTE | 2024-08-23 21:13 | CTR_ITS ---
PROCEDURE INFORMATION: Exam: CT Abdomen And Pelvis With Contrast Exam date and time: 08/23/2024 9:42 PM Age: 54 years old Clinical indication: Other: Abnormal tissue density; Prior surgery; Surgery date: 6+ months; Surgery type: Splenectomy; Patient HX: Abnormal heterogenous soft tissue density noted in left abd on non contrast CT performed earlier this evening. ; Additional info: Back pain, abnormal plain CT TECHNIQUE: Imaging protocol: Computed tomography of the abdomen and pelvis with contrast. Radiation optimization: All CT scans at this facility use at least one of these dose optimization techniques: automated exposure control; mA and/or kV adjustment per patient size (includes targeted exams where dose is matched to clinical indication); or iterative reconstruction. Contrast material: OMNI 350; Contrast volume: 100 ml; Contrast route: INTRAVENOUS (IV); COMPARISON: CT abdomen pelvis wo con [id number] 08/23/2024 7:38 PM RADIATION DOSE METRICS: Total DLP (mGy-cm): 744.82 FINDINGS: Lungs: Masslike consolidation in the region of the lingula. Dedicated CT of the chest is recommended. Diaphragm: No evidence of diaphragmatic defect. Liver: Hepatic steatosis. No evidence of focal hepatic lesion. Gallbladder and biliary ducts: Unremarkable. No intra-hepatic or extra-hepatic biliary dilatation. Pancreas: Unremarkable. Spleen: The spleen as it was visualized in August 2020 is no longer appreciable compatible with reported history of splenectomy. 7 cm hypodense lesion along the Gerota's/lateral conal fascia on the left with surrounding nodules most suggestive of splenosis. Adrenal glands: Unremarkable. Kidneys and ureters: No renal parenchymal abnormality. No hydronephrosis or ureteral stone. Stomach and bowel: No evidence of bowel obstruction or perienteric inflammatory changes. Appendix: Normal appendix. Intraperitoneal space: No evidence of free air or fluid collection. Vasculature: No aneurysmal dilatation or dissection of the abdominal aorta. The celiac trunk, SMA and NICK are grossly patent. No evidence of IVC thrombus. The portal vein, SMV and splenic veins are grossly patent. Lymph nodes: No adenopathy. Urinary bladder: Grossly unremarkable. Reproductive: Grossly unremarkable. Bones/joints: No evidence of acute fracture or aggressive osseous lesion. Multiple left-sided rib fractures. Soft tissues: No evidence of fluid collection or hematoma in the superficial soft tissues. Small 1-2 cm fat containing ventral abdominal hernias. CT/CT abdomen pelvis w con* [id number] IMPRESSION: 1. No evidence of acute abnormality in the abdomen or pelvis. 2. Lobulated left retroperitoneal soft tissue lesion most suggestive of splenosis. Consider confirmation with outpatient nuclear medicine technetium 99 sulfur colloid exam. 3. Masslike consolidation in the region of the lingula. Dedicated CT of the chest is recommended.
[2024-08-23] MEDS: HYDROmorphone 1 mg/mL INJ 1 mL IVP ×2 (21:18→22:51)
[2024-08-23 21:21] LABS: Reflex Lactate Order REFLEX LACTIC ORDERD
[2024-08-23] MEDS: iohexol 350 mg/mL 500 mL Btl (per mL) IV (21:44)
[2024-08-23 22:26] LABS: Lactic Acid level (Lactate) 1.3 mmol/L (0.5-2.2)
--- NOTE | 2024-08-23 22:32 | W.ED.GENADLT ---
HPI - General Adult General: Chief complaint: General Medical Stated complaint: no feeling from waist down, no urine control v/con Time Seen by Provider: 08/23/24 19:01 History of Present Illness: This patient is a 54-year-old white male who presents to the emergency department with severe thoracic back pain. Patient states he does have chronic thoracic back pain ever since he fractured his spine 4 years ago. He states he fell out of a tree stand and sustained multiple injuries. He was taking care of at the [facility] and was in the ICU there for quite some time. He had a splenectomy. States he did not have any surgery on his spine. Over the past week he has had severe pain on the thoracic spine. This is his third visit to emergency departments. Today he has developed numbness of both legs as well as incontinence of urine. He has not had a bowel movement since Saturday. He is now vomiting. Associated symptoms: Reports nausea and vomiting Related Data Home Medications Medication Instructions Recorded Confirmed ascorbic acid (vitamin C) 1,000 mg 500 mg PO BID 09/27/20 08/19/23 tablet cholecalciferol (vitamin D3) 25 25 mcg PO DAILY 09/27/20 08/19/23 mcg (1,000 unit) capsule zinc acetate 50 mg (zinc) capsule 50 mg PO DAILY 09/28/20 08/19/23 (Galzin) Previous Rx's Medication Instructions Recorded magnesium oxide 400 mg PO BID #60 tabs 07/04/22 duloxetine 30 mg capsule,delayed 30 mg PO DAILY #90 caps 08/19/23 release (Cymbalta) methocarbamol 500 mg tablet 1,000 mg (2 x 500 mg) PO Q8H #30 08/04/24 tabs tramadol 50 mg tablet 50 mg PO Q6H PRN pain #14 tabs 08/04/24 naproxen 500 mg tablet (Naprosyn) 500 mg PO BID PRN pain #20 tabs 08/16/24 Allergies Allergy/AdvReac Type Severity Reaction Status Date / Time No Known Allergies Allergy Verified 08/19/23 13:06 Review of Systems General: Reports: 10 or more systems reviewed and unremarkable except in HPI and below GI: Reports: nausea, vomiting and constipation Neuro: Reports: difficulty walking and other (Numbness from the waist down.) [facility] ED PFSH: Medical History Tachycardia with heart rate 100-120 beats per minute Surgical History History of splenectomy 2020 History of surgery on right wrist plate and screws Family History Other Dementia Diabetes Heart disease Hypertension Stroke Denies family history of Cancer Social History Smoking and tobacco/nicotine status: former use of tobacco/nicotine Second hand smoke exposure: No Alcohol intake: former Substance/Drug Use: former Adopted: No Caregiver/support person: No Lives independently: Yes Household members: children Housing: Manufactured/Mobile home Marital status: Number of children: 2 Highest education level completed: High School Graduate service: No Current occupational status: employed 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 HENMT: COMMON NORMALS: normocephalic, atraumatic, Normal nasal mucous membranes and turbinates present, moist oral mucous membranes and oropharynx normal HEAD & SCALP: normal to inspection, normocephalic and atraumatic FACE & SINUS: normal facial exam NOSE: Normal nasal mucous membranes and turbinates present Eye: COMMON NORMALS: Equal, round and reactive pupils present, EOMs intact bilaterally and conjunctivae normal GENERAL EYE: appearance normal, both eyes and all related structures CONJUNCTIVA: Yes conjunctivae normal PUPIL: Yes Equal, round and reactive pupils present Neck/C-Spine: COMMON NORMALS: supple and no JVD Chest: COMMONS NORMALS: normal inspection of the chest Resp: COMMON NORMALS: normal respiratory effort and clear to auscultation bilaterally AUSCULTATION: clear to auscultation bilaterally Cardio: COMMON NORMALS: no JVD, regular rate, regular rhythm, No gallops present (Cardio), No murmurs present (Cardio) and No rub (Cardio) RATE: regular rate RHYTHM: regular rhythm GI: COMMON NORMALS: Normal to inspection, nondistended, normoactive bowel sounds present, Soft to palpation and non-tender AUSCULTATION: Yes normoactive bowel sounds PALPATION: Yes Soft to palpation Back/Pelvis: LUMBAR SPINE/LOWER BACK: Yes lumbar spinal tenderness Neuro: COMMON NORMALS: patient oriented x3 and CN's II-XII intact bilaterally SENSORY EXAM: Yes extremities (Numbness of both lower extremities from the waist down.) Psych: COMMON NORMALS: mental status grossly normal, Normal thought process present and cooperative THOUGHT PROCESS: Normal thought process present Skin: COMMON NORMALS: no rashes or lesions noted, turgor normal and no jaundice GENERAL SKIN EXAM: no rashes or lesions noted and turgor normal Course Vital Signs: Vital signs: Vital Signs Temperature 97.7 F 08/23/24 18:47 Pulse Rate 105 H 08/23/24 22:10 Respiratory Rate 24 H 08/23/24 22:10 Blood Pressure 159/89 08/23/24 22:10 Pulse Oximetry 92 08/23/24 22:10 Oxygen Delivery Me thod Room Air 08/23/24 18:47 MDM - General Adult Medical Decision Making CBC reveals a white blood cell count of 25.4. Platelets 786. CMP revealed a sodium of 132 and alk phos of 195. Lactic acid 3.9. Lipase 12. Urine analysis normal. Plain CT of the abdomen pelvis was read by the radiologist. There was heterogenous area next to the descending colon of uncertain etiology. They recommended CT scan with IV contrast. CT scan with IV contrast has not been read as normal. Chest x-ray reveals a consolidation in the lingula. Nursing staff states that the patient accidentally pulled his Kurtz catheter out and he could not feel it. Patient needs an urgent MRI of his spine. He would like to go to [facility] in [place]. I discussed this case with Dr. Mckeon, ER physician at [facility]. He did accept the transfer. Patient will be transferred shortly. We have given the patient 3 L of normal saline as well as 4.5 g of Zosyn and 1.5 g of vancomycin per sepsis protocol. Lab Data 08/23/24 19:05 08/23/24 19:05 Radiology Impressions Chest X-Ray 08/23/24 21:11 IMPRESSION: 1. Masslike consolidation of the lingula. Dedicated CT of the chest with contrast is recommended when clinically feasible. Abdomen/Pelvis CT 08/23/24 21:13 IMPRESSION: 1. No evidence of acute abnormality in the abdomen or pelvis. 2. Lobulated left retroperitoneal soft tissue lesion most suggestive of splenosis. Consider confirmation with outpatient nuclear medicine technetium 99 sulfur colloid exam. 3. Masslike consolidation in the region of the lingula. Dedicated CT of the chest is recommended. Laboratory Results WBC 25.38 10^3/uL (3.29-11.43) H 08/23/24 19:05 RBC 4.89 10^6/uL (3.85-5.65) 08/23/24 19:05 Hgb 14.20 g/dL (11.27-16.99) 08/23/24 19:05 Hct 44.2 % (37-53) 08/23/24 19:05 MCV 90.4 fl (82-101) 08/23/24 19:05 MCH 29.0 pg (27-33) 08/23/24 19:05 MCHC 32.1 g/dL (30-55) 08/23/24 19:05 RDW 13.2 % (12.1-15.1) 08/23/24 19:05 Plt Count 786 10^3/cmm (157-399) H 08/23/24 19:05 MPV 9.1 fL (7.4-10.4) 08/23/24 19:05 Neut % (Auto) 81.8 % 08/23/24 19:05 Lymph % (Auto) 11.3 % 08/23/24 19:05 [place] % (Auto) 6.2 % 08/23/24 19:05 Eos % (Auto) 0.0 % 08/23/24 19:05 Baso % (Auto) 0.2 % 08/23/24 19:05 Neut # (Auto) 20.73 10^3/uL (1.8-7.7) H 08/23/24 19:05 Lymph # (Auto) 2.9 10^3/uL (0.8-4.8) 08/23/24 19:05 [place] # (Auto) 1.6 10^3/uL (0.2-0.9) H 08/23/24 19:05 Eos # (Auto) 0.0 10^3/uL (0.0-0.8) 08/23/24 19:05 Baso # (Auto) 0.1 10^3/uL (0.0-0.1) 08/23/24 19:05 Nucleated RBC % (auto) 0 % 08/23/24 19:05 Nucleated RBCs # 0.0 /100WBC 08/23/24 19:05 Sodium 132 mmol/L (136-145) L 08/23/24 19:05 Potassium 4.2 mmol/L (3.5-5.1) 08/23/24 19:05 Chloride 91 mmol/L (98-107) L 08/23/24 19:05 Carbon Dioxide 21 mmol/L (22-29) L 08/23/24 19:05 Anion Gap 24.2 (5-19) H 08/23/24 19:05 BUN 15 mg/dL (6-20) 08/23/24 19:05 Creatinine 0.9 mg/dL (0.7-1.2) 08/23/24 19:05 GFR Calculation 88.3 mL/min (90-130) L 08/23/24 19:05 Glucose 128 mg/dL (65-115) H 08/23/24 19:05 Calculated Osmolality 276 mOsm/kg (285-295) L 08/23/24 19:05 Lactic Acid 3.9 mmol/L (0.5-2.2) H 08/23/24 19:05 Lactic Acid (Sepsis) 1.3 mmol/L (0.5-2.2) 08/23/24 22:05 Calcium 10.5 mg/dL (8.5-10.5) 08/23/24 19:05 Total Bilirubin 0.5 mg/dL (0.15-1.2) 08/23/24 19:05 AST 19 U/L (0-40) 08/23/24 19:05 ALT 29 U/L (0-41) 08/23/24 19:05 Alkaline Phosphatase 195 U/L (40-130) H 08/23/24 19:05 Total Protein 8.5 g/dL (6.6-8.7) 08/23/24 19:05 Albumin 4.7 g/dL (3.5-5.2) 08/23/24 19:05 Globulin 3.8 g/dL (1.3-4.6) 08/23/24 19:05 Lipase 12 U/L (13-60) L 08/23/24 19:05 Urine Color Yellow (Yellow) 08/23/24 20:44 Urine Appearance Clear (CLEAR) 08/23/24 20:44 Urine pH 6.5 (5-7) 08/23/24 20:44 Ur Specific [place] 1.016 (1.005-1.030) 08/23/24 20:44 Urine Protein Negative (Negative) 08/23/24 20:44 Urine Glucose (UA) Negative (Normal) 08/23/24 20:44 Urine Ketones Negative (Negative) 08/23/24 20:44 Urine Blood Negative (Negative) 08/23/24 20:44 Urine Nitrate Negative (Negative) 08/23/24 20:44 Urine Bilirubin Negative (Negative) 08/23/24 20:44 Urine Urobilinogen 1.0 mg/dL (Negative) 08/23/24 20:44 Ur Leukocyte Esterase Negative (Negative) 08/23/24 20:44 Urine RBC 3-5 /hpf (0-2) 08/23/24 20:44 Urine WBC 0-5 /hpf (0-5) 08/23/24 20:44 Ur Squamous Epith Cells 0-5 /hpf (0-5) 08/23/24 20:44 Amorphous Sediment Not Reportable 08/23/24 20:44 Urine Bacteria None seen /hpf (NONE) 08/23/24 20:44 Hyaline Casts 0-4 /lpf H 08/23/24 20:44 All radiology interpretation(s) finalized by discharge Discharge Plan Discharge Patient Disposition: Transfer to ED Clinical Impression: Paresthesia of both legs Sepsis Qualifiers: Sepsis type: sepsis due to unspecified organism Sepsis acute organ dysfunction status: without acute organ dysfunction Qualified Code(s): A41.9 - Sepsis, unspecified organism Thoracic back pain Qualifiers: Chronicity: acute Back pain laterality: unspecified Qualified Code(s): M54.6 - Pain in thoracic spine Condition: Stable Prescriptions: No Action ascorbic acid (vitamin C) 1,000 mg tablet 500 mg PO BID cholecalciferol (vitamin D3) 25 mcg (1,000 unit) capsule 25 mcg PO DAILY Galzin 50 mg (zinc) capsule 50 mg PO DAILY Rx Instructions: swallow whole; do not chew/break/dissolve/open magnesium oxide 400 mg magnesium tablet 400 mg PO BID Qty: 60 0RF Rx Instructions: OTC duloxetine [Cymbalta] 30 mg capsule,delayed release(DR/EC) 30 mg PO DAILY Qty: 90 1RF naproxen [Naprosyn] 500 mg tablet 500 mg PO BID PRN (Reason: pain) Qty: 20 0RF methocarbamol 500 mg tablet 1,000 mg PO Q8H Qty: 30 0RF tramadol 50 mg tablet 50 mg PO Q6H PRN (Reason: pain) Qty: 14 0RF Referrals: Jaylon Dumont MD [Primary Care Provider] - Coding Level of Care Code ED [facility] Psychiat[facility] for Julio César Rodriguez
== END 2024-08-23 23:14 ==
PROVIDERS: Emergency Provider Emergency Medicine; PCP Family Medicine
DX: R20.2 Paresthesia of skin (principal); A41.9 Sepsis, unspecified organism; M54.6 Pain in thoracic spine; Z87.891 Personal history of nicotine dependence
CPT/HCPCS: 36415; 51702; 71045; 74176; 74177; 80053; 81001; 83605; 83690; 85025; 87040; 96365; 96366; 96367; 96375; 96376; 99285; J1171; J2405; J2543; J3370; J7030; J7050